=== PATIENT | female | born 1955 | race African-American/Black ===

== ENCOUNTER 2016-07-16 18:07 | Emergency (ER) | payer MEDICARE, MEDICAID ==
[~2016-07-16] VITALS: Ht 154.9 cm; Wt 68.0 kg
[~2016-07-16 18:07] MED LIST: BENADRYL25 MG ORAL; CLINDAMYCIN HC300 MG ORAL; NAPROSYN500 M1 ORAL; NKM; NORCO 5-325 TA1 EAC1 ORAL; PERCOCET 5-3251 EACH ORAL; SOMA350 MG PO
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
[2016-07-16] MEDS ORDERED: LIDOCAINE VISCO20 ML PO (19:00)
[2016-07-16 19:36] VITALS: BP 146/82
[2016-07-16 19:38] VITALS: BP 147/83
== END 2016-07-16 19:39 | disposition home or self-care (01) ==
LOC: EMR 19:11
DX: J02.9 Acute pharyngitis, unspecified (principal); Z88.0 Allergy status to penicillin
CPT/HCPCS: 99283